=== PATIENT | female | born 2005 | race Caucasian/White ===

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

== ENCOUNTER 2023-07-08 08:00 | Outpatient (CLI) | payer OTHER | END 2023-07-08 23:59 | disposition home or self-care (01) | LOC: LAB.N 08:00 | PROVIDERS: ATTEND Physician Assistant Medical | DX: L60.0 Ingrowing nail (principal); L03.039 Cellulitis of unspecified toe | CPT/HCPCS: 87070; 87077; 87181; 87205 ==

== ENCOUNTER 2023-08-16 08:00 | Outpatient (CLI) | payer OTHER | END 2023-08-16 23:59 | disposition home or self-care (01) | LOC: LAB.N 08:00 | PROVIDERS: ATTEND Physician Assistant Medical | DX: L03.039 Cellulitis of unspecified toe (principal); L60.0 Ingrowing nail | CPT/HCPCS: 87070; 87077; 87181; 87205 ==